=== PATIENT | female | born 1985 | race Two or more races ===

== ENCOUNTER 2024-11-12 05:22 | Emergency (ER) | payer BC, MEDICAID, SELFPAY ==
[2024-11-12 05:23] VITALS: BMI 27.6
[2024-11-12 05:28] VITALS: BP 148/82; PULSE 74; RESP 18; TEMP 36.6; O2SAT 97
--- NOTE | 2024-11-12 06:24 | PD.EDRME ---
Rapid Medical Screening Exam [facility] Arrival date/time: 11/12/24 05:22 39-year-old female history of gastric bypass and umbilical hernia repair presents to the emergency department today complaints of right-sided abdominal pain Chief Complaint: Abdominal Pain Time Seen by Provider: 11/12/24 06:21 Vital signs: Vital Signs Temperature 97.9 F 11/12/24 05:28 Pulse Rate 74 11/12/24 05:28 Respiratory Rate 18 11/12/24 05:28 Blood Pressure 148/82 H 11/12/24 05:28 Pulse Oximetry (%) 97 11/12/24 05:28 Oxygen Delivery Method Room Air 11/12/24 05:28
[2024-11-12] MEDS: HYDROcodone/APAP 5/325 TABLET 1 TAB PO (06:38)
[2024-11-12 06:53] LABS: Collection Type, Urine Clean Catch
[2024-11-12 07:03] LABS: Bilirubin,Urine Negative (Negative); Blood,Urine Negative (Negative); Color,Urine Lt-Yellow (Lt Yel-Yel); Culture Indicated,Urine Not Indicated; Glucose, Urine Negative (Negative); Ketones,Urine Negative (Negative); Leukocyte Esterase,Urine Negative (Negative); Nitrite,Urine Negative (Negative); Protein,Urine Negative (Neg - Trace); RBC,Urine 2 /hpf (0-3); Specific Gravity,Urine 1.019 (1.001-1.035); Squamous Epithelial Cell,Urine 4 /hpf (0-5); Urobilinogen,Urine Negative mg/dL (0.0-1.0); WBC,Urine 2 /hpf (0-5)
[2024-11-12 07:06] LABS: HCG Qualitative,Urine Negative
[2024-11-12 07:19] LABS: Clarity,Urine Clear (Clear/Hazy)
[2024-11-12 07:44] LABS: Basophils % (Auto) 0 % (0-2.5); Eosinophils # (Auto) 0.1 Thou/mm3 (0.0-0.5); Eosinophils % (Auto) 1 % (0-10); Hematocrit 40.7 % (36.0-46.0); Hemoglobin 13.7 g/dL (12.0-16.0); Immature Granulocytes % (Auto) 0 % (0-0); Immature Granulocytes Auto 0.02 Thou/mm3 (0.00-0.00); Lymphocytes # (Auto) 2.9 Thou/mm3 (1.0-4.8); Lymphocytes % (Auto) 31 % (10-50); Mean Corpuscular HGB Conc 33.7 g/dl (31.0-37.0); Mean Corpuscular Hemoglobin 30.6 pg (25.0-35.0); Mean Corpuscular Volume 91 fL (80-100); Monocytes # (Auto) 0.5 Thou/mm3 (0.0-0.8); Monocytes % (Auto) 6 % (0-12); Neutrophils # (Auto) 5.8 Thou/mm3 (1.8-7.7); Neutrophils % (Auto) 61 % (37-80); Nucleated Red Blood Cell % 0 /100 WBC (0); Platelet Count 385 Thou/mm3 (140-440); RDW Standard Deviation 45.5 fL (36.4-46.3); Red Blood Count 4.48 Miln/mm3 (4.00-5.20); White Blood Count 9.4 Thou/mm3 (3.6-11.0)
[2024-11-12 07:56] LABS: Alanine Aminotransferase 10 U/L (10-49); Albumin, Serum 4.1 gm/dL (3.5-5.0); Albumin/Globulin Ratio 1.7 (1.2-2.2); Alkaline Phosphatase 92 U/L (46-116); Anion Gap 6 (7-16); Aspartate Amino Transferase 18 U/L (0-34); BUN/Creatinine Ratio 10 Ratio (12-20); Bilirubin,Total 0.7 mg/dL (0.3-1.2); Blood Urea Nitrogen 7 mg/dL (9-23); Calcium 9.5 mg/dL (8.3-10.6); Calcium (Corrected) 9.5 mg/dL (8.5-10.1); Carbon Dioxide 26.9 mMol/L (20.0-31.0); Chloride 107 mMol/L (98-107); Creatinine (Component) 0.7 mg/dL (0.6-1.3); Estimated Creatinine Clearance 97.9 mL/min (>60); Globulin 2.4 gm/dL (2.3-3.5); Glucose 94 mg/dL (74-106); Lipase 33 U/L (12-53); Osmolality,Calculated 277 (275-295); Potassium 4.8 mMol/L (3.4-5.1); Sodium 140 mMol/L (136-145); Total Protein 6.5 gm/dL (5.7-8.2); eGFR > 60 See Note
--- NOTE | 2024-11-12 08:48 | XR_ITS ---
Examination: CT abdomen and pelvis without contrast. Coronal 3-D reconstructions. Sagittal 2-D reconstructions. Date and time of exam:November 12, 2024 0939 hours INDICATIONS: Onset abdominal pain today, history hydronephrosis 3 mm proximal right ureteral calculus on CT stone study November 09, 2016 CTDI: vol (mGy): 7.98 DLP: (mGycm): 425 Technique: Axial images of the abdomen have been obtained, 3 mm slice thickness Intravenous contrast material has not been administered. Low dose protocols were performed. One or more of the following dose reduction techniques were used; automated exposure control, adjustment of the mA and/or KV according to patient size, use of iterative reconstruction technique. Findings: No focal liver or splenic lesions No gallstones No pancreatic mass Tiny 1 to 2 mm left renal calculi, no hydronephrosis or ureteral calculi Small lymph nodes in the right lower mesentery, no pericecal inflammatory change No bowel obstruction Colonic diverticulosis, no diverticulitis Anteverted uterus with mild free fluid in the pelvis and mildly prominent left ovary, 3.7 cm, axial image 176 Bladder intact IMPRESSION: Tiny nonobstructing left renal calculi No CT findings of appendicitis or bowel obstruction Anteverted uterus, mildly prominent left ovary, mild free fluid in the pelvis, recommend pelvic sonography follow-up
[2024-11-12 10:15] VITALS: BP 121/72; PULSE 60; RESP 16; TEMP 36.8; O2SAT 99
--- NOTE | 2024-11-12 10:46 | XR_ITS ---
Examination: Pelvic ultrasound, transabdominal, complete Technique: Transabdominal ultrasound of the pelvis performed using grayscale imaging Date and time of exam: November 12, 2024 1104 hours INDICATIONS: Onset right lower abdominal pelvic pain beginning last night FINDINGS: Uterus 9.8 cm endometrial stripe 0.6 cm No uterine mass or intrauterine gestation Right ovary 3.4 cm arterial flow Left ovary 3.2 cm arterial flow 9 x 9 mm cyst with minimal free fluid in the left adnexal region IMPRESSION: No uterine mass or intrauterine gestation Left ovarian follicular cyst, minimal free fluid in the left adnexal region clinical correlation advised
--- NOTE | 2024-11-12 11:26 | EDNOTE_ITS ---
ED Abdominal Pain RME/HPI General Chief Complaint: Abdominal Pain Stated complaint: RLQ ABD PAIN SINCE LAST NIGHT Time seen by provider: 11/12/24 06:21 Arrival date/time: 11/12/24 05:22 RME / HPI RME / HPI narrative: 39-year-old female history of gastric bypass and umbilical hernia repair presents to the emergency department today complaints of right-sided abdominal pain. Onset of symptoms since last night, described as dull ache, severity moderate. Pain now radiates to the pelvic area. Denies any vomiting denies any fever denies any other complaints no medication was taken prior travel. Related Data Home Medications ?Medication ?Instructions ?Recorded ?Confirmed omeprazole 20 mg capsule,delayed 20 mg PO QDAY ##0 01/07 release (Prilosec) Previous Rx's ?Medication ?Instructions ?Recorded Hydrocodone/Acetaminophen * (NORCO 1 tab PO BID PRN PA IN #10 tabs 11/09/16 5/325 *) Allergies Allergy/AdvReac Type Severity Reaction Status Date / Time Penicillins Allergy Unknown anaphylaxis Verified 11/12/24 05:26 Review of Systems Review of Systems Narrative Review of Systems: Review of system reviewed and within normal limits except mentioned in HPI ED Exam Narrative Physical exam: VITAL SIGNS: Reviewed. GENERAL APPEARANCE: Alert and interactive, follows commands, no acute distress, HEAD AND FACE: Non-traumatic. ENT: PERRL, pink conjunctivitis, eyelid no trauma, Mucous membrane moist. NECK: Supple, nontender, no nuchal rigidity. CHEST: No tenderness, no crepitus, no paradoxical movement, no retractions. LUNGS: Clear, well ventilated, symmetric, no rales, no wheezing, no ronchi, no stridor, good breath sounds bilaterally. HEART: Regular rate, regular rhythm, no murmur, no gallops. ABDOMEN: Soft, positive bowel sounds, nondistended, no guarding, right lower quadrant tenderness, no rebound, no masses, RECTAL: Deferred. GENITAL: Deferred. NEUROLOGICAL: Gross motor function intact sensory function intact, Appropriate for age. MUSCULOSKELETAL: low back nontender, full range of motion. EXTREMITIES: Nontender, full range of motion. SKIN: Color pink, dry, no rash, no lacerations, no abrasions, no contusions. LYMPHATICS: Deferred. Course Quality Measures none Orders Category Date Time Status CT abdomen pelvis wo con Stat Exams 11/12/24 08:48 Completed US pelvic complete Stat Exams 11/12/24 10:46 Taken CBC Stat Lab 11/12/24 07:19 Completed Comprehensive Metabolic Panel Stat Lab 11/12/24 07:19 Completed HCG Qualitative,Urine Stat Lab 11/12/24 06:45 Completed Lipase Stat Lab 11/12/24 07:19 Completed UA, C/S IF [Urinalysis, C/S if Indicated] Stat Lab 11/12/24 06:45 Completed HYDROcodone*/APAP 5/325 [[place] 5/325] Med 11/12/24 06:24 Discontinued 1 tab PO X1 ONE Ketorolac Inj [Toradol Inj] Med 11/12/24 11:15 Discontinued 30 mg IM X1 ONE Vital Signs Vital signs: Vital Signs Temperature 97.9 F 11/12/24 05:28 Pulse Rate 74 11/12/24 05:28 Respiratory Rate 18 11/12/24 05:28 Blood Pressure 148/82 H 11/12/24 05:28 Pulse Oximetry (%) 97 11/12/24 05:28 Oxygen Delivery Method Room Air 11/12/24 05:28 Abdominal Pain MDM MDM Narrative MDM Narrative:: 39-year-old female history of gastric bypass and umbilical hernia repair presents to the emergency department today complaints of right-sided abdominal pain. Onset of symptoms since last night, described as dull ache, severity moderate. Pain now radiates to the pelvic area. Denies any vomiting denies any fever denies any other complaints no medication was taken prior travel. Laboratory workup all came back unremarkable. CT scan of the abdomen pelvis showed tiny calculi otherwise unremarkable. Results discussed with the patient and family. Ultrasound of the pelvis came back. Left-sided ovarian cyst otherwise unremarkable. Patient appears nontoxic and hemodynamically stable. Patient discharged home and instructed to follow-up with primary care provider in 24 to 48 hours. Instructed to return to the emergency department immediately if worsening of symptoms Patient data External records reviewed:: None Clinical information provided by:: patient and family Social determinants that could affect healthcare access:: none Patient has the following chronic illnesses:: History of gastric bypass How is presenting disease/condition affected by chronic disease/condition?: uneffected by Evaluation data The following diagnostics were reviewed and interpreted by me:: lab results and radiology exam(s) Lab and/or radiology exams considered but not ordered:: None Interpretation Summary: None Medications / Prescriptions Medications or Prescriptions considered but not ordered:: None Medication administrations:: Medication Administration History Discontinued Medications Hydrocodone Bitart/Acetaminophen (Hydrocodone/Apap 5/325 Tablet) 1 tab PO X1 ONE Stop: 11/12/24 06:25 Last Admin: 11/12/24 06:38 Dose: 1 tab Documented By: EE Ketorolac Tromethamine (Ketorolac Inj 30 Mg/Ml Vial) 30 mg IM X1 ONE Stop: 11/12/24 11:16 Toradol IM and [place] Consultations Consultation(s) initiated? (list below): No Diagnosis Differential diagnosis abdominal pain: abdominal pain, acute appendicitis and calculus of kidney Most likely diagnosis given after review of the tests above:: Abdominal pain Admission Indicated Admission indicated?: not indicated Explain why admission is indicated or not indicated:: Stable Admission Request Was there a request for admission?: No Disposition Plan Disposition Plan: Discharge Discharge Attestation Discharge Attestation: The patient and all family members were given an opportunity to ask questions and understood the discharge instructions. Discharge instructions specifically effects, indications for sooner follow up or return to the emergency department, and the expected course of current diagnosis. Patient condition: Stable Discharge Plan Plan Patient Disposition: HOME (Self Care) Disposition Comment: stable Prescriptions/Referrals Prescriptions/Med Rec: No Action omeprazole [Prilosec] 20 MG capsule,delayed release(DR/EC) 20 mg PO QDAY Qty: 0 Patient Comments: TO SUPPRESS GASTRIC ACID SECRETIONS Hydrocodone/Acetaminophen * (NORCO 5/325 *) 1 TAB tablet 1 tab PO BID PRN (Reason: PAIN) Qty: 10 0RF Rx Instructions: FOR PAIN Referrals: Guillermo Duque MD [Primary Care Provider] - In 1 week Problem List Clinical Impression: Abdominal pain Patient/Caregiver Discharge Instructions Discharge Activity: activity as tolerated Education Materials: Abdominal Pain Additional Instructions: Thank you for the opportunity for serving you today. You are stable for discharged . You are advised to: Follow-up with your PCP in 1 to 2 days Return to ED for worsening of symptoms Increase oral fluids Take over the counter Tylenol or Motrin as needed for pain Print Language: Bur[place]ian Stand Alone Forms: [employer] Award Info., Work/School Release, Patient Portal Info Letter
--- NOTE | 2024-11-12 11:56 | PC.NURSE ---
CALLED 2X AT THIS TIME TO MEDICATE AND D/C NO ANSWER, WILL ATTEMPT AGAIN IN 5 MINUTES
--- NOTE | 2024-11-12 12:16 | PC.NURSE ---
PT LEFT PRIOR TO MEDICATION AND DISCHARGE PAPERS
== END 2024-11-12 12:17 | disposition home or self-care (01) ==
PROVIDERS: Nurse Practitioner Primary Care; Emergency Provider Emergency Medicine; PCP Family Medicine
DX: R10.31 Right lower quadrant pain (principal); R10.2 Pelvic and perineal pain
CPT/HCPCS: 36415; 74176; 76856; 80053; 81001; 81025; 83690; 85025; 99284; A9270